=== PATIENT | male | born 1980 | race Hispanic/Latino ===

== ENCOUNTER 2020-07-13 18:02 | Emergency (ER) | payer SELFPAY ==
[2020-07-13] MEDS ORDERED: CEPHALEXIN 500 MG CAPSULE ONE (18:31)
[2020-07-13] MEDS ORDERED: FLUCONAZOLE 100 MG TAB ONE (18:31)
[2020-07-13] MEDS ORDERED: HYDROCODONE/ACETAMINOPHEN 10/325 MG TAB ONE (18:32)
== END 2020-07-13 19:04 | disposition home or self-care (01) ==
LOC: EDH 18:02
DX: L03.116 Cellulitis of left lower limb (principal); B35.3 Tinea pedis; E66.9 Obesity, unspecified; R73.9 Hyperglycemia, unspecified
CPT/HCPCS: 82948